=== PATIENT | male | born 1960 | race Two or more races ===

== ENCOUNTER 2017-01-18 09:42 | Inpatient (IN) | payer BC ==
[~2017-01-18] VITALS: Ht 182.9 cm; Wt 97.0 kg
[2017-01-18] VITALS (21 sets, daily range): BP systolic 113–148; BP diastolic 58–85; PULSE 54–68; RESP 11–22
--- NOTE | 2017-01-18 12:26 | HPN ---
Date/Time of Note Date/Time of Note DATE: 01/18/17 TIME: 12:26 Interval H&P Admission Note Pt. seen H&P reviewed: No system changes JUANCHO RASMUSSEN MD January 18, 2017 12:26
[2017-01-18] MEDS ORDERED: POLYMYXIN/BACITRACIN 1L IRRIG ONE (13:06)
[2017-01-18] MEDS ORDERED: THROMBIN 5000 UNIT VIAL ONE ×3 (13:09→15:31)
[2017-01-18] MEDS ORDERED: GELATIN SIZE 100 SPONGE ONE (13:09)
[2017-01-18] MEDS ORDERED: BUPIVACAINE 0.25%/EPI (SDV) 30 ML INJ ONE ×2 (13:09→15:46)
[2017-01-18] MEDS ORDERED: FENTAnyl 50 MCG/ML VIAL ONE (13:23)
[2017-01-18] MEDS ORDERED: POLYMYXIN/BACITRACIN 1L IRRIG IRR ONE (13:57)
[2017-01-18] MEDS ORDERED: BUPIVACAINE 0.25%/EPI (SDV) 30 ML INJ INJ ONE (13:57)
[2017-01-18] MEDS ORDERED: LIDOCAINE 2% (SDV) 5 ML INJ ONE (14:04)
[2017-01-18] MEDS ORDERED: GLYCOPYRROLATE 0.4 MG INJ ONE (14:04)
[2017-01-18] MEDS ORDERED: ROCURONIUM 50 MG INJ ONE (14:04)
[2017-01-18] MEDS ORDERED: CEFAZOLIN 1 GM INJ ONE (14:04)
[2017-01-18] MEDS ORDERED: SUCCINYLCHOLINE CHLORIDE 100 MG/5 ML SYG IV ONE (14:04)
[2017-01-18] MEDS ORDERED: PROPOFOL 40 ML ONE (14:04)
[2017-01-18] MEDS ORDERED: NEOSTIGMINE 3 MG/3 ML SYRINGE ONE (14:04)
[2017-01-18] MEDS ORDERED: THROMBIN 5000 UNIT VIAL TOP ONE ×3 (14:12→15:35)
[2017-01-18] MEDS ORDERED: HEMOSTATIC MATRIX SYG ZFS ONE ×2 (14:12→15:35)
[2017-01-18] MEDS ORDERED: MEPERIDINE 25 MG INJ IV PRN (14:30)
[2017-01-18] MEDS ORDERED: FENTAnyl 50 MCG/ML VIAL IV PRN ×2 (14:30)
[2017-01-18] MEDS ORDERED: ONDANSETRON 4 MG INJ IV PRN (14:30)
[2017-01-18] MEDS ORDERED: METOCLOPRAMIDE 10 MG INJ IV PRN (14:30)
[2017-01-18] MEDS ORDERED: DIPHENHYDRAMINE 50 MG INJ IV PRN (14:30)
[2017-01-18] MEDS ORDERED: HYDROmorphONE (0.2 MG/ML) 10ML SYG IV PRN ×3 (14:30)
[2017-01-18] MEDS ORDERED: BETAMET NA PHOS/AC(6 MG/ML) 5ML INJ ONE (15:26)
[2017-01-18] MEDS ORDERED: GELATIN SIZE 100 SPONGE TOP ONE (15:28)
--- NOTE | 2017-01-18 16:17 | PDOCDIS ---
Discharge Instructions DIAGNOSIS Discharge Diagnosis: L4-5 Right stenosis with HNP CONDITION Patient Condition: Good HOME CARE INSTRUCTIONS: Diet Instructions: Regular ACTIVITY: Activity Restrictions: Avoid heavy lifting Bathing Restrictions: Shower FOLLOW UP/APPOINTMENTS Appointments Follow-up with Dr. Rasmussen in 2 weeks JUANCHO RASMUSSEN MD January 18, 2017 16:17
[2017-01-18] MEDS ORDERED: NALOXONE (0.4 MG/ML) INJ IV PRN (16:30)
[2017-01-18] MEDS ORDERED: PROCHLORPERAZINE 10 MG TAB PO PRN (16:30)
[2017-01-18] MEDS ORDERED: NACL 0.9% 3 ML SYG IV SCH (16:30)
[2017-01-18] MEDS ORDERED: HYDROCODONE/APAP (5/325) TAB PO PRN ×2 (16:30)
--- NOTE | 2017-01-18 16:32 | OPR ---
Date/Time of Note Date/Time of Note DATE: 01/18/17 TIME: 16:31 Operative Report Free Text/Dictation DATE OF OPERATION: 01/18/2017 PREOPERATIVE DIAGNOSES: Right L4-5 spinal stenosis with Right L4-5 HNP w/ L5 radiculopathy POSTOPERATIVE DIAGNOSES: same OPERATION PERFORMED: 1. Right L4-5 partial laminectomy, medial facetectomy, and foraminotomy 2. Right L4-5 microdiskectomy SURGEON: Juancho Rasmussen MD LINING MACHINE OPERATOR: Eric Muñiz MD ANESTHESIA: General endotracheal ESTIMATED BLOOD LOSS: Minimal SURGICAL INDICATION: The patient is a 56 year-old male who presents with an increasing history of right tlower extremity pain. The patient was unable to ambulate significant distances secondary to their pain and had documented progressive weakness of the right TA. The patient had failed conservative treatment. Risks, benefits, and alternatives to a decompressive procedure including possible micodiskectomy were discussed. Risks were discussed as including but not exclusive of risks of bleeding, infection, nerve injury, cauda equina syndrome, iatrogenic instability, dural tear, myocardial infarction , stroke, pulmonary embolism were explained to the patient, and she wished to proceed. DESCRIPTION OF TECHNIQUE: The patient was identified in the preoperative area and taken to the operating room. Rapid induction of general endotracheal anesthesia was performed. Patient was given 2 g of cefazolin for prophylaxis. The patient was then placed in the prone position on the axis table with all bony prominences well padded. The back was prepped and draped in usual sterile manner. Using a spinal needle and intraoperative fluoroscopy, the L4-5 level was clearly identified. The skin was injected using 0.25% Marcaine with epinephrine. Longitudinal midline incision was then created using a 10 blade. Further dissection through soft tissue was performed using electrocautery down to the spinous processes. Dissection was taken down the right side of the lamina and over the facet joint capsule. A self-retaining retractor was applied. Again, intraoperative fluoroscopy confirmed the level. The microscope was brought into use for microdissection. The high-speed bur was used to thin the caudal aspect of the L4 lamina. Kerrison rongeurs were then used to resect a portion of the lamina, the medial facet and the bone overlying the foramen. Ligamentum flavum was also resected using the Kerrison rongeurs. Care was taken to protect the thecal sac throughout the decompressive procedure. The Right L5 pedicle was identified with a malika to ensure integrity of the L5 nerve root. A nerve root retractor was used to mobilize and retract the L5 nerve root and thecal sac medialy. The L4-5 disc was identified and was noted to be partially calcified. A small soft disc protrusion was noted and I used a 15 blade to inscise the pseudoannulus. Small portions of disc fragments were removed to a stable base. Palpation with a ball-tip probe did not reveal any further stenosis in the central, subarticular, or foraminal areas. The exiting L4 nerve root and traversing L5 nerve roots were both directly visualized and noted to be decompressed. The wound was irrigated copiously using normal saline. Meticulous attention was paid toward hemostasis using bipolar cautery, FloSeal, Gelfoam and thrombin. Care was taken to remove all FloSeal and Gelfoam and thrombin prior to wound closure. The fascia was then closed using 0 Vicryl in interrupted fashion. Subcutaneous tissue was closed using 2-0 Vicryl in interrupted fashion. Skin was closed using a running 4-0 Monocryl stitch. The wound was dressed using Dermabond, gauze and Tegaderm. The patient was returned to the supine position. They were extubated immediately postoperatively and taken to the recovery room in stable condition. COMPLICATIONS: None. Procedure Date: January 18, 2017 Anesthesia: general Estimated Blood Loss: minimal Complications: None Pt Condition Post Procedure: stable Disposition: PACU JUANCHO RASMUSSEN MD January 18, 2017 16:32
[2017-01-18] MEDS: ONDANSETRON 4 MG INJ IV PRN (21:15)
[2017-01-19 00:19] VITALS: BP 125/66; PULSE 56; RESP 17
[2017-01-19] MEDS: HYDROmorphONE 1 MG/ML SYG IV PRN ×4 (03:01→18:21)
[2017-01-19 06:08] VITALS: BP 128/58; PULSE 75; RESP 19
[2017-01-19 07:49] VITALS: BP 127/70; RESP 18
[2017-01-19] MEDS: ONDANSETRON 4 MG INJ IV PRN (08:36)
[2017-01-19] MEDS ORDERED: DEXAMETHASONE 10 MG/ML 1 ML INJ IV ONE (12:00)
--- NOTE | 2017-01-19 13:55 | RADRPT ---
PROCEDURE: Intraoperative imaging of the lumbar spine with fluoroscopy. CLINICAL INDICATION: Back pain. Intraoperative. TECHNIQUE: 3 images of the lumbar spine were obtained in the operating room with an image intensif ier. No radiologist was in attendance. 9.1 seconds of fluoroscopy time was used. COMPARISON: No prior study is available for comparison. FINDINGS: For the purposes of this report, the last apparent true disc level is considered to be L5-S1. Based on this, the posterior surgical instrument is present overlying the L4-5 level. IMPRESSION: 1. Intraoperative imaging of the lumbar spine. RPTAT: QQ .Kar Pinto MD, Date Time Electronically viewed and signed by .Kar Pinto MD, on 01/19/2017 13:55 .R/
--- NOTE | 2017-01-19 18:17 | PN ---
DATE: 01/19/2017 ORTHOPEDIC PROGRESS NOTE SUBJECTIVE: The patient is a pleasant 56-year-old male who is currently postop day #1 status post r ight-sided L4 to L5 decompression with microdiskectomy. He had no acute overnight events. He has h ad some persistent right-sided low back pain over the incision site that radiates to his right butto cks, which is worse with ambulation. He was unable to clear physical therapy today for discharge. His pain is under good control currently with Percocet q.4h. p.r.n. pain. He will be working again with physical therapy tomorrow in the a.m. He otherwise had no acute overnight events. PHYSICAL EXAMINATION: He is afebrile. Vital signs stable. His posterior midline incision is clean , dry and intact with no erythema or evidence of drainage. On physical exam, he has 5/5 strength in the bilateral hip flexors, knee extensors, tibia and gastrocnemius, soleus and EHL. He reports lele e mild decreased sensation over the dorsum of his right foot compared to the left. Otherwise, his s ensation to light touch is intact ASSESSMENT AND PLAN: The patient is a 56-year-old male postop day #1 status post right-sided L4 to L5 decompression with microdiskectomy. Plan at this time, we will continue to have the patient work with physical therapy until he clears to go home. He is currently urinating well. His incision si te is clean, dry and intact. He has no gross neurological deficits on physical exam other than some mild decreased sensation over the dorsum of his right foot, which he reports has been present since before the operation. We will discharge him tomorrow a.m. once he clears physical therapy. Dictated By: JUANCHO MAYA/EVA Conf#: [id number] DID#: [id number]
[2017-01-19 20:50] VITALS: BP 108/62; RESP 20
[2017-01-19] MEDS: METHOCARBAMOL 500 MG TAB PO PRN (21:32)
[2017-01-20] MEDS: OXYCODONE/ACETAMINOPHEN (10/325) TAB PO PRN ×2 (06:07→10:30)
[2017-01-20 07:43] VITALS: BP 122/63; RESP 18
--- NOTE | 2017-01-20 11:05 | RADRPT ---
PROCEDURE: CT Lumbar Spine without contrast. CLINICAL INDICATION: Lumbar spine pain status post right L4-5 lumbar decompression. TECHNIQUE: The study was performed on a multislice multidetector CT scanner. Spiral axial 1 mm im ages were obtained through the lumbar spine without intravenous contrast. 1 or more of the following dose reduction techniques were utilized: Automated exposure control, adjustment of the mA and/or k V according to patient's size, iterative reconstruction technique. Coronal and sagittal reformation s were obtained. The images were reviewed on a PACS workstation. RADIATION DOSE: CTDIvol: 37.7 mGyDLP: 1160.8 mGy-cm COMPARISON: No prior studies are available for comparison. FINDINGS: There are postoperative changes from right-sided hemilaminotomy at L4-5 with postoperative changes a long the right posterior epidural space. There are postoperative changes in the posterior paraspina l soft tissues without evidence of inflammatory changes. There are diffuse anterior osteophytes wit h moderate disc-space narrowing at L5-S1 and mild narrowing of the intervertebral discs at L3-4 and L4-5. There are multilevel Schmorl's nodes at T11-12, T12-L1 and L1-2 as well as the superior L3 en dplate. There are is moderate atherosclerotic calcification of the abdominal aorta and proximal sheree ac vessels without evidence of aneurysm formation. There is a 2 mm stone in the midpole of the right kidney. L1-L2: There is a 1-2 mm annular disc bulge. The thecal sac and lateral recesses are patent. Ther e is mild bilateral facet spondylosis. There is mild bilateral neural foraminal narrowing. L2-L3: There is a 4-5 mm annular disc bulge. The thecal sac measures 7.5 mm midline AP diameter. There is mild prominence of the dorsal epidural fat. There is mild bilateral facet joint hypertroph y with buckling ligamentum flavum. There is severe narrowing of both lateral recesses. There is se marlene bilateral neural foraminal narrowing. L3-L4: There is a 2-3 mm annular disc bulge. The thecal sac measures 9 mm midline AP diameter. Th ere is mild prominence of the dorsal epidural fat. There is mild to moderate bilateral facet hypert rophy. There is severe narrowing of both lateral recesses. There is moderate to severe bilateral n eural foraminal narrowing. L4-L5: There are postoperative changes in the right posterior epidural space, limiting evaluation a t this level. There is a baseline 2-3 mm annular disc bulge seen in the left paracentral/foraminal region. Unable to evaluate the discs in the area of postoperative change in the right paracentral a spect. There is moderate bilateral neural foraminal narrowing. L5-S1: There is a 3-4 mm annular disc bulge asymmetric to the left paracentral region. There is a minimal amount of air within the epidural space at this level related to the recent surgery. There is severe left lateral recess and left neural foraminal narrowing. The thecal sac measures approxim ately 8 mm in midline AP diameter. There is moderate right neural foraminal narrowing. IMPRESSION: 1. Postoperative changes from right-sided hemilaminotomy at L4-5 with postoperative changes in the paraspinal soft tissues. Unable to evaluate the soft tissue structures in this region, and MRI of t he lumbar spine with without contrast is recommended for further evaluation. 2. Multilevel moderate spondylosis throughout the lumbar spine with moderate spinal stenosis at L2- 3 and mild narrowing of the lumbar thecal sac at L3-4 and L5-S1. 3. Multilevel facet spondylosis with severe narrowing of the bilateral L2-3, L3-4 foramina. Other moderate foraminal narrowings as discussed above. RPTAT: HGAS .Uriel Olivares MD, Date Time Electronically viewed and signed by .Uriel Olivares MD, on 01/20/2017 11:05 .S/
[2017-01-20] MEDS: METHOCARBAMOL 500 MG TAB PO PRN ×2 (15:36→23:00)
--- NOTE | 2017-01-20 17:46 | PN ---
DATE: 01/20/2017 ORTHOPEDIC SPINE PROGRESS NOTE SUBJECTIVE: The patient is a pleasant male who is currently postop day #2 status post right-sided L 4-5 decompression with microdiskectomy. He had no acute overnight events. He has been having persi stent right-sided low back pain which is worse with ambulation. He was unable to clear physical the rapy yesterday. He currently reports his pain has improved significantly since yesterday. He is cu rrently taking 1 tablet p.o. Percocet q. 8 hours p.r.n. pain. He reports that his pain is at a 1 to 2/10 in intensity at rest; however, it can go up significantly in intensity with walking. He rico holman reports some mild intermittent numbness over the dorsum of his right foot but denies any weakne ss in his ankle dorsiflexion or right toe extension. He has been able to urinate without any diffic ulty. He denies any saddle anesthesia. OBJECTIVE: VITAL SIGNS: He has been afebrile. Vital signs stable. GENERAL: He is alert and oriented x3 in no acute distress. ABDOMEN: Soft, nontender, nondistended. He has positive bowel sounds NEUROLOGIC: The patient has 5/5 strength in his right hip flexor, knee extensor, tibialis, gastrocn emius, soleus, and EHL. His posterior midline incision is clean and dry with no drainage noted. Ho wever, the patient does have significant right-sided low back pain with what he reports to be tighte yesy and muscle spasms when getting out of bed and walking. ASSESSMENT AND PLAN: Postop day #2 status post right-sided L4-5 decompression procedure. The patie nt was unable to be discharged home yesterday as he did not clear PT. He reports significant pain w hen getting out of bed and walking. He reports the pain is mainly located in the lower back. He re ports that his leg pain has significantly improved since the procedure. However, given that he is s till having some persistent pain on the right side of his lower back, I would like to obtain a CT sc an of the lumbar spine today to ensure that there was not any iatrogenic pars fracture. I would lik e to also assess to ensure there is no large hematoma in this area, given the patient's significant pain with ambulation. We will have the patient continued to work with physical therapy. We will co sarahy to have his pain under control with p.o. Percocet which appears to be working well. We will continue to monitor this patient closely during this inpatient admission. CT scan of the lumbar spine was obtained today. There is no evidence of any significant hematoma ca using any significant pressure on the thecal sac or nerve root. There is no evidence of any iatroge eddie pars fracture. There appears to be a right-sided L4 laminectomy which was performed for the dec ompression procedure. Dictated By: JUANCHO MAYA/EVA Conf#: [id number] DID#: [id number]
[2017-01-20 20:13] VITALS: BP 135/74; RESP 22
[2017-01-21] MEDS: OXYCODONE/ACETAMINOPHEN (10/325) TAB PO PRN ×2 (00:07→13:38)
[2017-01-21] MEDS: ONDANSETRON 4 MG INJ IV PRN (07:26)
[2017-01-21 07:48] VITALS: BP 140/86; RESP 18
[2017-01-21] MEDS ORDERED: OXYC-431 PO (12:29)
== END 2017-01-21 15:28 | disposition home or self-care (01) | DRG 520 ==
LOC: SDS 09:42 → EDSTATUS 12:00 → SDS 16:16 → MS1 16:16 → OBSVTOIN 01-20 12:36
PROVIDERS: ADMIT Orthopaedic Surgery; ATTEND Orthopaedic Surgery
PROC: 0SB20ZZ Excision of Lumbar Vertebral Disc, Open Approach (ICD-10-PCS; principal; 2017-01-18 12:00)
DX: M51.16 Intervertebral disc disorders with radiculopathy, lumbar region (principal); I25.10 Atherosclerotic heart disease of native coronary artery without angina pectoris
CPT/HCPCS: 72100; 72131; 88304; 97116; 97163; 97530; G0378; J0330; J0690; J0702; J1100; J1170; J2405; J2710; J2765; J3010